=== PATIENT | female | born 1975 | race Caucasian/White ===

== ENCOUNTER → 2017-02-01 19:37 | Outpatient (CLI) | payer MEDICAID ==
[2013-06-25 06:51] VITALS: BMI 44.0
[~2017-02-01 19:37] MED LIST: AMBIEN5 MG PO; CARAFATE1 G/10 ML PO; NEXIUM40 MG PO; NORCO 10/325 TA1 TA1 PO; PERCOCET 10/3251 TA1 PO; WELLBUTRIN100 MG PO; XANAX0.25 MG PO; ZANTAC150 MG PO; ZOLOFT50 MG PO
== END | disposition home or self-care (01) ==
LOC: D.SLEEP 19:37
DX: G47.33 Obstructive sleep apnea (adult) (pediatric) (principal)

== ENCOUNTER 2017-10-18 06:42 | Outpatient (CLI) | payer MEDICAID ==
[~2017-10-18] VITALS: Ht 157.5 cm; Wt 125.0 kg
--- NOTE | ~2017-10-18 | HEMODYNAMI ---
PATIENT:MARLIN LAO MEDICAL RECORD: [id number] : 71 LOCATION:[facility] ADMISSION DATE: 10/18/17 Generatedon:10/18/20178:46 Patient name: MARLIN LAO Patient #: [id number] SSN: : [birth year] Date of study: 10/18/2017 Page: Of Hemodynamic Procedure Report Patient Data Patient Demographics Procedure consent was obtained First Name: MARLIN Gender: Female Last Name: SHILO : 1975 Middle Initial: L Age: 42 year(s) Patient #: [id number] Race: Unknown Additional ID: [id number] Contact details Address: [address] [place] [address] [place] State: [place] City: [place] Zip code: [address] Admission Admission Data Admission Date: 10/18/2017 Admission Time: 6:42 Procedure Procedure Types Cath Procedure Diagnostic Procedure LHC LHC w/Coronaries Sedation Charges Moderate Sedation up to 15 minutes Procedure Description Procedure Date Procedure Date: 10/18/2017 Procedure Start Time: 8:29 Procedure End Time: 8:46 Procedure Staff Name Function Dale Yates MD Performing Physician Sheree Eduardo RT Monitor Marlin Gray RT Scrub German Conde RN Nurse Procedure Data Cath Procedure Fluoroscopy Diagnostic fluoroscopy Total fluoroscopy Time: 3.6 time: 3.6 min min Diagnostic fluoroscopy Total fluoroscopy dose: 507 dose: 507 mGy mGy Contrast Material Contrast Material Type Amount (ml) Isovue 300 36 Entry Location Entry Primary Successful Side Size Upsize Upsize Entry Closure Anne ccessful Closure Location (Fr) 1 (Fr) 2 (Fr) Remarks Device Remarks Radial Right 6 Fr Mechanical TR band artery Short Compression Estimated blood loss: 10 ml Diagnostic catheters Device Type Used For End Catheter Placement DIAGNOSTIC [place] 110cm 5 Procedure Fr catheter (032620) Procedure Complications No complications Procedure Medications Medication Administration Route Dosage Oxygen NC 2 l/min Heparin Flush Bag added to field 2 bags (1000units/500ml NS) 0.9% NaCl I.V. 100 ml/hr Fentanyl I.V. 50 mcg Versed I.V. 1 mg Fentanyl I.V. 50 mcg Versed I.V. 1 mg Radial Cocktail added to field 1 syringe (Verapomil 2mg/Nitro 400mcg/Heparin 1500units) Radial Cocktail I.A. 1 syringe (Verapomil 2mg/Nitro 400mcg/Heparin 1500units) Hemodynamics Rest Heart Rate: 0 (bpm) Pressure Samples Time Site Value (mmHg) Purpose Heart Use Rate(bpm) 8:39 LV 135/11,13 EDP 99 8:40 AO 148/98(123) Pullback 98 8:40 LV 119/16,17 Pullback 98 Gradients Valve Time Site 1 Site 2 Mean SEP/DFP Peak To Heart Use (mmHg) (sec/min) Peak Rate (mmHg) (bpm) Aortic 8:40 LV AO 0 98 119/16,17 148/98(123) Calculations Valve P-P Mean Valve Index Valve Source Name Gradient Area Flow (cm2) Aortic 0 0 Snapshots Pre Cath Intra NCS Post Cath Vital Signs Time Heart Resp SPO2 etCO2 NIBP (mmHg) Rhythm Pain Sedation Rate (ipm) (%) (mmHg) Status Level (bpm) 8:13:51 84 18 97 44.1 169/116(143) NSR 0 (11) 10(A) , No pain 8:18:13 91 18 99 20.9 163/106(135) NSR 0 (11) 10(A) , No pain 8:22:37 88 17 92 45.5 169/101(134) NSR 0 (11) 10(A) , No pain 8:26:57 91 16 97 43.3 156/99(133) NSR 0 (11) 10(A) , No pain 8:31:19 91 15 97 41.1 153/100(135) NSR 0 (11) 10(A) , No pain 8:35:39 96 15 93 42.6 143/94(120) NSR 0 (11) 9(A) , No pain 8:40:08 94 15 96 45.6 138/100(123) NSR 0 (11) 9(A) , No pain 8:44:22 102 14 96 47 145/100(120) NSR 0 (11) 9(A) , No pain Medications Time Medication Route Dose Verified Delivered Reason Notes E ffectiveness by by 8:15:09 Oxygen NC 2 l/min Dale German Per Milan kraus MD 8:15:20 Heparin Flush added 2 bags Dale German used for Bag to Milan Conde RN procedure (1000units/500ml field MAC NS) 8:15:36 0.9% NaCl I.V. 100 Dale German Per ml/hr Milan kraus MD 8:27:24 Fentanyl I.V. 50 mcg Dale German for sedation Milan Codne RN, MD 8:27:30 Versed I.V. 1 mg Dale German for sedation Milan Conde RN, MD 8:30:49 Fentanyl I.V. 50 mcg Dale German for sedation Milan Conde RN, MD 8:30:52 Versed I.V. 1 mg Dale German for sedation Milan Conde RN, MD 8:32:57 Radial Cocktail added 1 Dale German used for (Verapomil to syringe Milan Conde RN procedure 2mg/Nitro field MAC 400mcg/Heparin 1500units) 8:33:03 Radial Cocktail I.A. 1 Dale Dale for (Verapomil syringe Milan Yates MD vasodilation 2mg/Nitro 400mcg/Heparin 1500units) Procedure Log Time Note 7:55:34 Sheree GREENBERG(R) sent for patient. Start room use. 7:55:35 Time tracking: Regular hours 7:55:40 Plan of Care:Hemodynamics will remain stable., Cardiac rhythm will remain stable., Comfort level will be maintained., Respiratory function will remain adequate., Patient/ family verbilizes understanding of procedure., Procedure tolerated without complication., Recovers from procedure without complications.. 8:11:31 Patient received from Pre/Post Procedure Room to [facility] 2 Alert and oriented. Tansferred to table in Supine position. 8:11:32 Warm blankets applied, and tiffanie hugger turned on for patient comfort. 8:11:33 Correct patient and procedure confirmed by team. 8:11:34 Signed procedure consent form obtained from patient. 8:11:37 ECG and BP/O2 sat monitors applied to patient. 8:11:57 Vital chart was started 8:12:02 Baseline sample Acquired. 8:12:09 Rhythm: sinus rhythm 8:12:11 Full Disclosure recording started 8:12:15 H&P Date Dictated: 10/18/2017 Within 30 days and on chart., H&P Addendum completed by physician on day of procedure. (MUST COMPLETE FOR ALL OUTPATIENTS). 8:12:16 Pre-procedure instructions explained to patient. 8:12:17 Pre-op teaching completed and patient verbalized understanding. 8:12:19 Family in patients room. 8:12:21 Patient NPO since Midnight. 8:12:23 Is the patient allergic to Iodine/contrast media? Yes. 8:12:23 Was the patient premedicated? Yes 8:12:24 Is patient on blood thinner?Yes 8:12:27 ACC The patient was administered the following blood thiners within the last 24 hours: ACCPlavix 8:12:37 Patient diabetic? No. 8:12:40 Previous problem with sedation/anesthesia? No ? 8:12:42 Snore? Yes 8:12:43 Sleep apnea? Yes 8:12:43 Deviated septum? No 8:12:44 Opens mouth fully? Yes 8:12:45 Sticks out tongue? Yes 8:12:47 Airway obstruction? No ? 8:12:50 Dentures? No ? 8:12:54 Pre procedure: right dorsailis pedis pulse 1+ Palpable, but thready & weak; easily obliterated 8:12:55 Pre procedure: left dorsailis pedis pulse 1+ Palpable, but thready & weak; easily obliterated 8:12:57 Patient pain scale 0/10 ?. 8:13:03 IV patent on arrival in left forearm with 0.9% NaCl at [facility]. 8:13:06 Lab results completed and on chart. 8:13:09 Right Radial & Right Groin area was prepped with chlora-prep and draped in sterile fashion 8:13:10 Alarms reviewed by R. N. 8:13:10 Sharps counted by scrub and verified by R.N. 8:15:09 Oxygen 2 l/min NC was administered by German Conde RN; Per physician; 8:15:20 Heparin Flush Bag (1000units/500ml NS) 2 bags added to field was administered by German Conde RN; used for procedure; 8:15:36 0.9% NaCl 100 ml/hr I.V. was administered by German Conde RN; Per physician; 8:21:00 Physician paged 8:27:00 Physician arrived 8:27:03 --------ALL STOP TIME OUT------ 8:27:04 Final Timeout: patient, procedure, and site verified with staff and physician. All members of the team are in agreement. 8:27:15 Right Radial & Right Groin site verified by team. 8:27:21 Physical assessment completed. ASA score P 2 - A patient with mild systemic disease as per Dale Yates MD. 8:27:24 Fentanyl 50 mcg I.V. was administered by German Conde RN; for sedation; 8:27:28 Sedation plan: IV Moderate Sedation Medication:Versed, Fentanyl 8:27:30 Versed 1 mg I.V. was administered by German Conde RN; for sedation; 8:27:34 Use device set Radial Dx or PCI 8:29:13 Procedure started. 8:29:20 ACIST Syringe (97080) opened to sterile field. 8:29:20 Medline Cath Pack ([id number]) opened to sterile field. 8:29:20 Bag Decanter (2002S) opened to sterile field. 8:29:22 SHEATH 6FR Slender ([id number]) opened to sterile field. 8:29:23 DIAGNOSTIC WIRE .035 260cm J wire (323324) opened to sterile field. 8:29:24 ACIST Hand Control (25332) opened to sterile field. 8:29:24 ACIST Manifold (29824) opened to sterile field. 8:29:24 Tegaderm 4 x 4 (1626W) opened to sterile field. 8:29:25 MBrace Wrist Support ([id number]) opened to sterile field. 8:29:26 NEEDLE Cook 21G 4cm Radial (C60997) opened to sterile field. 8:29:45 Local anesthetic to right radial artery with Lidocaine 2% by Dale Yates MD.INITIAL ACCESS ONLY 8:29:59 A 6 Fr Short sheath was inserted into the Right Radial artery 8:30:49 Fentanyl 50 mcg I.V. was administered by German Conde RN; for sedation; 8::52 Versed 1 mg I.V. was administered by German Conde RN; for sedation; 8:32:57 Radial Cocktail (Verapomil 2mg/Nitro 400mcg/Heparin 1500units) 1 syringe added to field was administered by German Coned RN; used for procedure; 8:33:03 Radial Cocktail (Verapomil 2mg/Nitro 400mcg/Heparin 1500units) 1 syringe I.A. was administered by Dale Yates MD; for vasodilation; 8:35:26 GLIDE WIRE ANGLE 260cm (TX7702) opened to sterile field. 8:35:54 glidewire used with tiger 8:36:03 A DIAGNOSTIC [place] 110cm 5 Fr catheter ([id number]) was advanced over the wire and used for Procedure. 8:36:28 glide wire wire advanced. 8:37:02 Zero performed for pressure channel P1 8:40:46 EF : 65 % 8:41:00 LCA angiography performed. 8:41:18 RCA angiography performed. 8:41:46 Catheter removed. 8:43:08 Sheath removed intact; hemostasis achieved with Mechanical Compression to the Right Radial artery. 8:43:30 Procedure ended.(Physican Out) 8:43:54 Fluoroscopy time 03.60 minutes. 8:44:03 Fluoroscopy dose: 507 mGy 8:44:03 Flurop Dose total: 507 8:44:06 Contrast amount:Isovue 300 36ml. 8:44:15 Sharps counted by scrub and verified by R.N. 8:44:20 TR band inflated with 13cc of air. 8:44:22 Insertion/operative site no bleeding no hematoma. 8:44:23 Post Procedure Pulses reassessed and unchanged 8:44:31 Post-procedure physical assessment completed. ASA score P 2 - A patient with mild systemic disease as per Dale Yates MD. 8:44:33 Estimated blood loss: 10 ml 8:44:38 Post procedure instruction explained to patient.Patient verbalizes understanding. 8:44:40 Patient needs reinforcement of post procedure teaching. 8:44:56 Procedure type changed to Cath procedure, Diagnostic procedure, LHC, LHC w/Coronaries, Sedation Charges, Moderate Sedation up to 15 minutes 8:45:10 Procedure and supply charges have been captured, reviewed, submitted and are correct. 8:45:30 TR BAND Standard ([id number]) opened to sterile field. 8:45:54 Procedure Complication : No complications 8:45:57 Vital chart was stopped 8:45:57 See physician's report for complete and final results. 8:46:00 Report given to Pre/Post Procedure Room. 8:46:07 Patient transfered to Pre/Post Procedure Room with Stretcher. 8:46:09 Procedure ended. 8:46:09 Full Disclosure recording stopped 8:46:12 End room use (Document Last) Device Usage Item Name Manufacture Quantity Catalog Hospital Part Current Minima l Lot# / Number Charge Number Stock Stock Serial# Code ACIST Acist 1 80489 505062 554980 471819 20 Syringe Medical (51258) Systems Inc Medline Cath Cardinal 1 [id number] 524887 57143 262736 5 Pack CooCoo ([id number]) Bag Decanter Microtek 1 2001S 874931 36380 373030 5 (2001S) Medical Inc. SHEATH 6FR Terumo 1 [id number] 688784 586061 901439 40 Slender ([id number]) DIAGNOSTIC St Blaze 1 785951 799120 813400 659072 30 WIRE .035 260cm J wire (715580) ACIST Hand Acist 1 93048 431255 652021 939574 5 Control Medical (27192) Systems Inc ACIST Acist 1 76038 641405 450254 180657 5 Manifold Medical (14268) Systems Inc Tegaderm 4 x 3M 1 1626W 306772 997136 886095 5 4 (1626W) MBrace Wrist Advanced 1 140-0250-00 025415 53387 270756 5 Support Vascular ([id number]) Dynamics NEEDLE Cinema One Medical 1 N65289 714319 891876 802035 5 21G 4cm Radial (S54657) GLIDE WIRE Terumo 1 QB9900 738030 375959 051911 5 ANGLE 260cm (FF8377) DIAGNOSTIC Terumo 1 40-4123 083357 686908 934456 5 [place] 110cm 5 Fr catheter (518011) TR BAND Terumo 1 [id number] 943847 115678 872608 40 Standard ([id number]) Signature Audit Tangent Stage Time Signature Unsigned Intra-Procedure 10/18/2017 Sheree Eduardo 8:46:30 AM RT(R) Signatures Monitor : Sheree Eduardo Signature : RT Date : Time : [facility] [address] [place] [address]
[2017-10-18] MEDS ORDERED: LIPITOR10 MG PO (07:02)
[2017-10-18] MEDS ORDERED: TRAZODONE HCL50 MG PO (07:02)
[2017-10-18] MEDS ORDERED: FLINTSTONE1 TAB.CHEW PO (07:02)
[2017-10-18 07:11] VITALS: BP 158/101; Ht 157.5 cm; Wt 125.0 kg
[2017-10-18 07:23] LABS: BASOPHILS 0.4 % (0-2); EOSINOPHILS 2.7 % (0-7); HEMATOCRIT 42.1 % (36.0-48.0); HEMOGLOBIN 13.3 g/dL (12-16); IMMATURE GRANULOCYTES 0.4 % (0-5); LYMPHOCYTES 28.1 % (15-50); MCH 25.3 pg (26.0-34.0); MCHC 31.6 g/dL (31.0-37.0); MEAN PLATELET VOLUME 10.8 fL (7.4-10.4); NEUTROPHILS 61.4 % (40-80); PLATELET COUNT 242 10x3/uL (130-400); RBC 5.26 10x6/uL (4.00-5.40); RDW 15.6 % (11.5-14.5); WBC 8.9 10x3/uL (4.8-10.8)
[2017-10-18 07:38] LABS: CALC OSMOLALITY 275 mosm/kg (275-300); CALCIUM 9.2 mg/dL (8.5-10.1); CARBON DIOXIDE 27.3 mmol/L (21.0-32.0); CHLORIDE - SERUM 99 mmol/L (98-107); CREATININE - SERUM 0.7 mg/dL (0.6-1.3); GLUCOSE 179 mg/dL (74-106); SODIUM 136 mmol/L (136-145); UREA NITROGEN 13 mg/dL (7-18); eGFR NON AFRICAN AMERICAN > 90 mL/min (90-120)
[2017-10-18 07:44] LABS: HCG SERUM NEGATIVE (NEGATIVE)
== END 2017-10-18 11:00 | disposition home or self-care (01) ==
LOC: D.CATH 06:42
PROVIDERS: Internal Medicine Cardiovascular Disease
DX: R07.9 Chest pain, unspecified (principal); R94.39 Abnormal result of other cardiovascular function study; Z01.812 Encounter for preprocedural laboratory examination

== ENCOUNTER → 2017-11-13 16:06 | Outpatient (CLI) | payer MEDICAID ==
[2017-10-18 07:11] VITALS: BMI 50.4
[~2017-11-13 16:06] MED LIST changes: +FLINTSTONE1 TAB.CHEW PO; +LIPITOR10 MG PO; +TRAZODONE HCL50 MG PO
[2017-11-13 16:28] LABS: CALC OSMOLALITY 284 mosm/kg (275-300); CALCIUM 8.7 mg/dL (8.5-10.1); CARBON DIOXIDE 30.5 mmol/L (21.0-32.0); CHLORIDE - SERUM 103 mmol/L (98-107); CREATININE - SERUM 0.8 mg/dL (0.6-1.3); GLUCOSE 145 mg/dL (74-106); POTASSIUM - SERUM 4.7 mmol/L (3.5-5.1); SODIUM 141 mmol/L (136-145); UREA NITROGEN 15 mg/dL (7-18); eGFR NON AFRICAN AMERICAN 82 mL/min (90-120)
== END | disposition home or self-care (01) ==
LOC: D.LABREF 16:06
PROVIDERS: Internal Medicine Cardiovascular Disease
DX: I10 Essential (primary) hypertension (principal)

== ENCOUNTER → 2017-12-20 18:12 | Outpatient (CLI) | payer MEDICAID ==
[2017-10-18 07:11] VITALS: BMI 50.4
== END | disposition home or self-care (01) ==
LOC: D.MAMMO 16:00
DX: Z12.31 Encounter for screening mammogram for malignant neoplasm of breast (principal)

== ENCOUNTER → 2018-01-24 17:27 | Outpatient (CLI) | payer MEDICAID ==
[2017-10-18 07:11] VITALS: BMI 50.4
== END | disposition home or self-care (01) ==
LOC: D.MAMMO 13:30
DX: R92.8 Other abnormal and inconclusive findings on diagnostic imaging of breast (principal)